=== PATIENT | male | born 1955 | race African-American/Black ===

== ENCOUNTER 2021-03-12 09:38 | Emergency (ER) | payer OTHER ==
[~2021-03-12] VITALS: Ht 175.3 cm; Wt 93.4 kg
[2021-03-12] MEDS ORDERED: OMEPRAZOLE 20 M20 M1 PO (09:59)
[2021-03-12] MEDS ORDERED: LISINOPRIL-HCT1 EAC1 PO (09:59)
[2021-03-12 10:22] LABS: HEMATOCRIT 42.7 % (42.0-52.0); HEMOGLOBIN 14.4 gm/dL (14.0-18.0); MCH 29.3 pg (26.0-34.0); MCHC 33.7 g/dL (28.0-37.0); MPV 7.7 fl. (7.2-11.1); RBC 4.91 mil/uL (4.50-6.00); RDW-CV 13.5 % (10.5-14.5); WBC 4.1 thou/uL (4.0-11.0)
[2021-03-12 10:33] LABS: CALCIUM 8.4 mg/dL (8.5-10.1)
[2021-03-12 10:37] LABS: ALBUMIN 3.5 g/dL (3.4-5.0); TOTAL BILIRUBIN 0.5 mg/dL (<0.1-1.0); TOTAL PROTEIN 7.4 g/dL (6.4-8.2)
[2021-03-12] MEDS ORDERED: HYDROCODON-ACE1 EAC7 PO (14:38)
[2021-03-12 15:17] VITALS: BP 165/92
== END 2021-03-12 15:17 | disposition home or self-care (01) ==
LOC: M.ERS 09:38
PROVIDERS: Emergency Medicine Emergency Medical Services
DX: S52.591A Other fractures of lower end of right radius, initial encounter for closed fracture (principal); W17.89XA Other fall from one level to another, initial encounter; Y93.89 Activity, other specified; Y92.89 Other specified places as the place of occurrence of the external cause; Y99.8 Other external cause status; S06.0X0A Concussion without loss of consciousness, initial encounter; I10 Essential (primary) hypertension